=== PATIENT | female | born 1955 | race Caucasian/White ===

== ENCOUNTER 2016-11-19 23:11 | Emergency (ER) | payer OTHER ==
[2016-11-19 23:56] LABS: BASOPHIL 0.7 % (0-2); HCT 44.5 % (37.0-47.0); HGB 15.1 g/dl (12.5-16.0); LYMPHOCYTE 15.7 % (15-48); MCH 31.1 pg (25.0-31.0); MCHC 33.9 g/dL (32.0-36.0); MCV 91.8 fL (78.0-100.0); MONOCYTE 7.8 % (0-12); MPV 10.1 fL (6.0-9.5); NEUTROPHIL 73.8 % (41-80); PLT 260 K/uL (150-400); RBC 4.85 M/uL (4.20-5.40); WBC 10.4 K/uL (4.0-10.5)
[2016-11-20 00:01] LABS: INR 0.89 (0.9-1.2); PROTHROMBIN TIME 11.7 SECONDS (11.7-14.0)
[2016-11-20 00:02] LABS: PTT 27.3 SECONDS (23.2-31.4)
[2016-11-20 00:03] LABS: D-DIMER 0.33 ug/mLFEU (0.00-0.41)
[2016-11-20 00:14] LABS: CKMB 1.58 ng/mL (0.97-4.94); MYOGLOBIN 31 ng/mL (26-65); TROPONIN T < 0.010 ng/mL
[2016-11-20 00:15] LABS: ALBUMIN 4.3 g/dL (3.5-5.0); BILIRUBIN - TOTAL 0.4 mg/dL (0.1-1.0); CREATININE 0.8 mg/dL (0.5-1.0); GLOBULIN (CALCULATION) 2.8 g/dL (2.2-4.2); POTASSIUM 3.9 mmol/L (3.5-5.1); TOTAL PROTEIN 7.1 g/dL (6.4-8.3)
[2016-11-20 01:00] LABS: BILIRUBIN NEGATIVE (NEGATIVE); BLOOD NEGATIVE Ery/uL (NEGATIVE); CLARITY CLEAR (CLEAR); COLOR YELLOW (YELLOW); GLUCOSE (U) NORMAL (NORMAL); KETONE (U) NEGATIVE (NEGATIVE); LEUKOCYTES NEGATIVE Leu/uL (NEGATIVE); NITRITE NEGATIVE (NEGATIVE); PROTEIN NEGATIVE (NEGATIVE); SPECIFIC GRAVITY <=1.005 (1.001-1.030); UROBILINOGEN 0.2 mg/dL (0.2-1.0); pH 6.5 (5.0-9.0)
== END 2016-11-20 04:10 | disposition home or self-care (01) ==
LOC: FER 23:11
PROVIDERS: Emergency Medicine
DX: R07.9 Chest pain, unspecified (principal); K21.9 Gastro-esophageal reflux disease without esophagitis; Z79.899 Other long term (current) drug therapy; Z87.19 Personal history of other diseases of the digestive system; Z82.49 Family history of ischemic heart disease and other diseases of the circulatory system
CPT/HCPCS: 36415; 71010; 80053; 80061; 81003; 82550; 82553; 83874; 84484; 85025; 85379; 85610; 85730; 93005